=== PATIENT | female | born 1970 | race Caucasian/White ===

== ENCOUNTER 2018-09-01 13:50 | Emergency (ER) | END 2018-09-01 23:27 | disposition home or self-care (01) ==

== ENCOUNTER 2018-10-28 14:30 | Emergency (ER) | payer OTHER ==
[~2018-10-28] VITALS: Ht 160 cm; Wt 61.4 kg
[~2018-10-28 14:30] MED LIST: FER325 PO
[2018-10-28 14:35] VITALS: Ht 160 cm; Wt 61.4 kg
--- NOTE | 2018-10-28 16:51 | ERD ---
ER Documentation Chief Complaint Chief Complaint urinary pain x 8 days, already taking ATB day 3, still c/o pain HPI 47-year-old female with history of recurrent UTIs presents with 8 days of vaginal pain and itching as well as white discharge which is since resolved. In addition patient states that she was unable to have intercourse because of the burning in the it malloy a lot when she urinates. Patient went to a clinic 3 days ago and they prescribed her Bactrim but she says that has not helped at all. Denies fevers, back pain, hematuria. Denies past medical history. Denies allergies. Denies medications aside from Bactrim. . Denies alcohol, tobacco, drug use. Up to date on vaccines. ROS All systems reviewed and are negative except as per history of present illness. Medications Home Meds Active Scripts Metronidazole* (Flagyl*) 500 Mg Tablet, 500 MG PO BID for 7 Days, #14 TAB Prov:CLARISSA ADRIAN 10/29/18 Phenazopyridine Hcl* (Pyridium*) 200 Mg Tab, 200 MG PO TID PRN for URINARY PAIN for 2 Days, #6 TAB 0 Refills Prov:CLARISSA ADRIAN 10/28/18 Ciprofloxacin Hcl* (Ciprofloxacin Hcl*) 500 Mg Tablet, 500 MG PO BID for 3 Days, #6 TAB 0 Refills Prov:CLARISSA ADRIAN 10/28/18 Ferrous Sulfate* (Ferrous Sulfate*) 325 Mg Tabec, 325 MG PO DAILY for 30 Days, TAB Prov:MARCELINO HE MD 09/01/18 Allergies Allergies: Coded Allergies: No Known Allergy (Unverified , 10/28/18) PMhx/Soc Hx Miscellaneous Medical Probl: Yes (ANEMIA) Hx Alcohol Use: No Hx Substance Use: No Hx Tobacco Use: No Smoking Status: Never smoker FmHx Family History: No diabetes, No coronary disease, No other Physical Exam Vitals Vital Signs Date Temp Pulse Resp B/P (MAP) Pulse Ox O2 O2 Flow FiO2 Time Delivery Rate 10/28/18 98.7 89 21 118/73 98 Room Air 19:06 (88) 10/28/18 98.7 75 20 124/73 97 14:35 (90) Physical Exam Const: No acute distress Resp: Clear to auscultation bilaterally Cardio: Regular rate and rhythm, no murmurs Abd: Mild suprapubic tenderness to palpation. Soft, non tender, non distended. Normal bowel sounds Back: No midline or flank tenderness Neur: Awake and alert Psych: Normal Mood and Affect Results 24 hrs Laboratory Tests Test 10/28/18 16:52 Urine Color STRAW Urine Clarity CLEAR Urine pH 7.0 Urine Specific [place] 1.005 Urine Ketones NEGATIVE mg/dL Urine Nitrite NEGATIVE mg/dL Urine Bilirubin NEGATIVE mg/dL Urine Urobilinogen NEGATIVE mg/dL Urine Leukocyte Esterase 1+ Caroline/ul Urine Microscopic RBC 1 /HPF Urine Microscopic WBC 40 /HPF Urine Bacteria FEW /HPF Urine Hemoglobin NEGATIVE mg/dL Urine Glucose NEGATIVE mg/dL Urine Total Protein NEGATIVE mg/dl Current Medications Medications Dose Sig/Adeline Start Time Status Last (Trade) Ordered Route PRN Stop Time Admin Dose Reason Admin Ceftriaxone 500 mg ONCE ONCE 10/28/18 DC 10/28/18 Sodium IM 17:00 17:28 (Rocephin) 10/28/18 17:19 Lidocaine 5 ml ONCE ONCE 10/28/18 DC 10/28/18 (Xylocaine INJ 17:00 17:27 1% (Mpf)) 10/28/18 17:19 1,000 mg ONCE ONCE 10/28/18 DC 10/28/18 Azithromycin PO 17:00 17:27 (Zithromax) 10/28/18 17:19 Fluconazole 150 mg ONCE ONCE 10/28/18 DC 10/28/18 (Diflucan) PO 17:00 17:27 10/28/18 17:19 Procedures/MDM ER Course: Wet mount, UA, G/C. Given cetriaxone, azithromyacin, diflucan. MDM: 47-year-old female with history of recurrent UTIs presents with 8 days of vaginal pain and itching as well as white discharge which is since resolved. In addition patient states that she was unable to have intercourse because of the burning in the it malloy a lot when she urinates. Patient went to a clinic 3 days ago and they prescribed her Bactrim but she says that has not helped at all. Denies fevers, back pain, hematuria. Patient based on patient's complaint of dysuria along with history of vaginal discharge and dysparaneua, decision was made to treat prophylactically with ceftriaxone, azithromycin, and Diflucan. Wet mount showed clue cells the patient advised to come back to receive a prescription for metronidazole. UA showed possible UTI therefore patient advised to finish her course of Bactrim and if symptoms still persist I gave her prescription for ciprofloxacin. I have low suspicion for pyelonephritis or complicated UTI. Patient discharged with strict ER precautions. Patient advised to follow up with PMD. All questions answered at discharge. Departure Diagnosis: Primary Impression: Dysuria Condition: Stable CLARISSA ADRIAN Oct 28, 2018 16:46
[2018-10-28] MEDS ORDERED: CEFTRIAXONE 500 MG INJ IM ONE (17:00)
[2018-10-28] MEDS ORDERED: LIDOCAINE 1% (MPF) 5 ML VIAL INJ ONE (17:00)
[2018-10-28] MEDS ORDERED: FLUCONAZOLE 150 MG TAB PO ONE (17:00)
[2018-10-28] MEDS ORDERED: AZITHROMYCIN 250 MG TAB PO ONE (17:00)
[2018-10-28] MEDS ORDERED: CIPR500T4 PO (18:52)
[2018-10-28] MEDS ORDERED: PHEN-538 PO (18:53)
[2018-10-28 19:06] VITALS: BP 118/73; PULSE 89; RESP 21
[2018-10-29] MEDS ORDERED: METR500T PO (14:54)
== END 2018-10-28 19:07 | disposition home or self-care (01) ==
LOC: FTE 14:30
DX: R30.0 Dysuria (principal)
CPT/HCPCS: 81001; 87086; 87210; 87591; J0696; Z7610; 96372

== ENCOUNTER 2019-01-28 10:20 | Emergency (ER) | payer OTHER ==
[~2019-01-28] VITALS: Ht 154.9 cm; Wt 62.0 kg
[~2019-01-28 10:20] MED LIST changes: +CIPR500T4 PO; +METR500T PO; +PHEN-538 PO
[2019-01-28 10:25] VITALS: Ht 154.9 cm; Wt 62.0 kg
--- NOTE | 2019-01-28 14:32 | ERD ---
ER Documentation Chief Complaint Chief Complaint pt is bib self with c/o feeling like her heart is racing on&off x 2 months HPI This is a 48-year-old female with a past medical history of anemia who is presenting with 4 months of intermittent waxing and waning palpitations and occasional shortness of breath. The patient reports that her symptoms started in September and come and go. The patient currently does not have any symptoms, but she did feel palpitations this morning which was concerning to her. She denies sweating. She denies lightheadedness or dizziness. She denies nausea or vomiting. She does not endorse any cardiac risk factors. The patient does not endorse any exacerbating or alleviating episodes. She does not report feeling anxious or stressed. The patient denies feeling sick recently. The patient denies fever or chills. The patient has had no headache or vision changes. The patient does not endorse neck or back pain. The patient denies abdominal pain. The patient denies changes to bowel movements or urination. The patient has had no focal deficits. The patient has had no weakness or numbness or tingling to the face or extremities. ROS All systems reviewed and are negative except as per history of present illness. Medications Home Meds Discontinued Scripts Metronidazole* (Flagyl*) 500 Mg Tablet, 500 MG PO BID for 7 Days, #14 TAB Prov:CLARISSA ADRIAN 10/29/18 Phenazopyridine Hcl* (Pyridium*) 200 Mg Tab, 200 MG PO TID PRN for URINARY PAIN for 2 Days, #6 TAB 0 Refills Prov:CLARISSA ADRIAN 10/28/18 Ciprofloxacin Hcl* (Ciprofloxacin Hcl*) 500 Mg Tablet, 500 MG PO BID for 3 Days, #6 TAB 0 Refills Prov:CLARISSA ADRIAN 10/28/18 Ferrous Sulfate* (Ferrous Sulfate*) 325 Mg Tabec, 325 MG PO DAILY for 30 Days, TAB Prov:MARCELINO HE MD 09/01/18 Allergies Allergies: Coded Allergies: No Known Allergy (Unverified , 01/28/19) PMhx/Soc Hx Miscellaneous Medical Probl: Yes (ANEMIA) Hx Alcohol Use: No Hx Substance Use: No Hx Tobacco Use: No FmHx Family History: No diabetes Physical Exam Vitals Vital Signs Date Temp Pulse Resp B/P (MAP) Pulse Ox O2 O2 Flow FiO2 Time Delivery Rate 01/28/19 68 18 107/68 100 Room Air 15:00 (81) 01/28/19 98.3 89 18 125/75 100 10:25 (92) Physical Exam Const: No apparent distress, well-developed, well-nourished Head: Normocephalic, Atraumatic Eyes: Normal Conjunctiva. Extraocular movements intact. Pupils equal, round and reactive to light ENT: Normal External Ears, Nose and Mouth. Neck: Full range of motion. No meningismus. Resp: Clear to auscultation bilaterally, No wheezes, rales or rhonchi Cardio: Regular rate and rhythm. No murmurs, rubs or gallops Abd: Soft, non tender, non distended. Normal bowel sounds Skin: No petechiae or rashes Back: No midline tenderness. No CVA tenderness Ext: No cyanosis, or edema Neur: Awake and alert, oriented 4. Cranial nerves intact. No facial droop. Normal strength, sensation and coordination. Psych: Normal Mood and Affect Result Diagram: 01/28/19 1432 01/28/19 1432 Results 24 hrs Laboratory Tests Test 01/28/19 14:32 White Blood Count 8.5 10^3/ul Red Blood Count 4.23 10^6/ul Hemoglobin 12.1 g/dl Hematocrit 38.4 % Mean Corpuscular Volume 90.8 fl Mean Corpuscular Hemoglobin 28.6 pg Mean Corpuscular Hemoglobin Concent 31.5 g/dl Red Cell Distribution Width 12.8 % Platelet Count 229 10^3/UL Mean Platelet Volume 10.3 fl Immature Granulocytes % 0.500 % Neutrophils % 72.8 % Lymphocytes % 14.8 % Monocytes % 8.5 % Eosinophils % 2.8 % Basophils % 0.6 % Nucleated Red Blood Cells % 0.0 /100WBC Immature Granulocytes # 0.040 10^3/ul Neutrophils # 6.2 10^3/ul Lymphocytes # 1.3 10^3/ul Monocytes # 0.7 10^3/ul Eosinophils # 0.2 10^3/ul Basophils # 0.1 10^3/ul Nucleated Red Blood Cells # 0.0 10^3/ul Sodium Level 138 mmol/L Potassium Level 4.0 mmol/L Chloride Level 105 mmol/L Carbon Dioxide Level 26 mmol/L Anion Gap 7 Blood Urea Nitrogen 11 mg/dl Creatinine 0.52 mg/dl Est Glomerular Filtrat Rate mL/min > 60 mL/min Glucose Level 109 mg/dl Calcium Level 9.1 mg/dl Troponin I < 0.012 ng/ml Thyroid Stimulating Hormone (TSH) 1.860 MIU/L Free Thyroxine 1.17 ng/dl Procedures/MDM MDM The patient's presentation warrants further investigation. Previous medical records, if available, were reviewed. LABS The patient's laboratory testing was obtained and reviewed. No emergent treatment was required unless described below. CBC: No E/o systemic infection or severe anemia or thrombocytopenia Chemistry: No E/o severe acidosis or alkalosis or renal failure or diabetic ketoacidosis Troponin: No E/o acute ischemia TSH: Within normal limits EKG EKG read by me: Rate/Rhythm: Regular rate and rhythm at a rate of 76 bpm Intervals: Normal. Incomplete right bundle branch block. [place]: Normal Impression: No evidence of acute ischemia or arrhythmia IMAGING Imaging and Radiology interpretation reviewed. CXR 1V Interpreted by me Soft Tissue: No acute abnormalities Bones: No acute abnormalities Mediastinum/Cardiac Silhouette: Unremarkable. No widened mediastinum. Lungs: No acute abnormalities. Normal pulmonary vasculature. No pneumothorax. No pulmonary edema. Clear costal diaphragmatic angles. No pleural effusions. No opacity or consolidations concerning for pneumonia. TREATMENT/DISPOSITION The patient presents with palpitations. There waxing and waning in nature, and the patient has no symptoms currently. The patient has a reassuring physical exam. The patient is not clinically orthostatic. The patient is not dizzy. I have decreased suspicion for vertigo. The patient has no signs of emergent or symptomatic anemia. The patient does not have any emergent electrolyte or metabolic emergencies. I have decrease suspicion for a thyroid disorder. The patient is not toxic appearing. I have decreased suspicion for an infectious etiology of symptoms. The patient's EKG and troponin are reassuring. I have low suspicion for acute coronary syndrome. I do not see evidence of any emergent cardiac arrhythmia, which includes but is not limited to heart block, Brugada syndrome or WPW. The patient has no heart murmurs or rales. There is no evidence of cardiomegaly on exam or chest xray. I have low suspicion for hypertrophic cardiomyopathy. I do not see evidence of CHF. The patient does not endorse any chest or pleuritic pain. The history is negative for bleeding or clotting disorders. The patient has not been involved in any recent prolonged trips or surgeries or hospitalizations. The patient has no calf tenderness or swelling. I have decreased suspicion for PE as the etiology of symptoms. The patient has no focal deficits. The neurologic exam is reassuring. I have decreased suspicion for cerebral ischemia. There was no trauma or injury. There is no personal or family history of cerebral aneurysm. I have decreased s uspicion for SAH or other ICH. I have low suspicion for temporal arteritis, cavernous venous thrombosis, subdural hematoma, epidural hematoma, meningitis. DISCHARGE Upon reevaluation of the patient, symptoms have improved. No emergent diagnoses were identified. At this time, I feel that the patient stable for discharge. The patient was instructed to follow-up with a primary care physician in 1-3 days. The patient will be given strict precautions with which to return to the emergency department. Prescriptions: None The patient's blood pressure was elevated at greater than 120/80 while in the emergency department. The patient was otherwise stable with no evidence of hypertensive urgency or emergency. The patient does not require admission for blood pressure control. I have discussed with the patient the risks of hypertension. I have instructed the patient to return to the ER for any new or worsening symptoms including chest pain, shortness of breath, headache, blurred vision, confusion, nausea, vomiting or LOC. I have advised the patient to follow up with the primary care physician for outpatient monitoring and treatment for hypertension in 1-3 days. Disclaimer: Inadvertent spelling and grammatical errors are likely due to EHR/dictation software use and do not reflect on the overall quality of patient care. Note that the electronic time recorded on this note does not necessarily reflect the actual time of the patient encounter. Departure Diagnosis: Primary Impression: Palpitations Condition: Stable Patient Instructions: Palpitations Additional Instructions: Thank you for for coming to [facility] for your care today. Please ask your nurse or provider if you have questions about your care today and do not leave until all your questions have been answered. Please use any medications given as directed and follow-up with your doctor (or the doctor you were referred to) in the next 1-3 days. If you do not have a primary care doctor you may follow up at the [facility] or [facility] clinic (listed below). You may also use motrin and tylenol as needed for fever and/or pain unless instructed otherwise by your provider or nurse. Indications for more urgent follow-up have been discussed, but you may return to the Emergency Department at ANY time for any worrisome or worsening symptoms. If you have abdominal pain, please know that no test or exam you received is perfect and you should follow up within 8 hours for continued pain. If you had any imaging studies today, such as an X-Ray or CT Scan, these studies will be reviewed later by a radiologist. You will be called if there are important findings that were not identified today, so make sure the contact information you provided at registration is correct. If you received any narcotic pain control medicine today, such as Vicodin, Morphine or Dilaudid, your coordination and judgment may be affected for a number of hours. Please do not drive or operate heavy machinery, and you may want someone to assist you at home. If you were given a prescription for narcotic medication, be aware that it is very addictive- use sparingly and only if necessary. PLEASE SEEK FURTHER EVALUATION AND MANAGEMENT AT YOUR DOCTORS OFFICE WITHIN THE NEXT 1-3 DAYS. IT IS YOUR RESPONSIBILITY TO MAKE AN APPOINTMENT FOR FOLOW-UP CARE. IF YOU HAVE A PRIMARY DOCTOR, PLEASE CALL THEIR OFFICE TO SCHEDULE AN APPOINTMENT FOR FOLLOW UP. IF YOU DO NOT HAVE A PRIMARY DOCTOR YOU CAN CALL OUR PHYSICIAN REFERRAL HOTLINE AT IF YOU CAN NOT AFFORD TO SEE A PHYSICIAN YOU CAN CHOSE FROM THE FOLLOWING [facility] CLINICS: [facility] [address] [facility]. [facility] [address] [facility] [facility] [address] [facility] [facility] [address] [facility]. [facility] [address] [facility]. [facility]. [address] LUCITA CASTANON MD Jan 28, 2019 14:32
[2019-01-28 15:00] VITALS: BP 107/68; PULSE 68; RESP 18
== END 2019-01-28 16:33 | disposition home or self-care (01) ==
LOC: E/R 10:20
DX: R00.2 Palpitations (principal)
CPT/HCPCS: 71045; 80048; 84439; 84443; 84484; 85025; 93005; Z7502